=== PATIENT | female | born 1990 | race Caucasian/White ===

== ENCOUNTER 2018-07-17 16:18 | Emergency (ER) | payer SELFPAY ==
[2018-07-17 17:16] LABS: Absolute Monocytes 0.9 K/uL (0.1-1.3); Absolute Neutrophil 3.4 K/uL (1.8-8.0); Basophils % 0.8 % (0-1.3); Eosinophils % 0.7 % (0-4.4); Hematocrit 38.7 % (36.0-45.0); Lymphocytes % 19.1 % (15.3-44.8); MCH 29.5 pg (27.0-35.0); MCV 86.3 fL (80-100); MPV 9.6 fL (7.6-11.3); Monocytes % 16.9 % (3.3-12.3); RBC Red Blood Cell Count 4.48 M/uL (3.86-4.86)
[2018-07-17 17:25] LABS: Urine Blood 1+ (NEG); Urine Glucose NEGATIVE (NEG); Urine Protein 1+ (NEG)
[2018-07-17 17:30] LABS: ALT/SGPT 23 U/L (12-78); AST/SGOT 21 U/L (15-37); Albumin 2.9 g/dL (3.4-5.0); Alkaline Phosphatase 86 U/L (45-117); BUN Blood Urea Nitrogen 8 mg/dL (7-18); Bicarbonate 28 mmol/L (21-32); Bilirubin Direct < 0.1 mg/dL (0-0.2); Bilirubin Total 0.4 mg/dL (0.2-1.0); Glucose Level 96 mg/dL (74-106); Lipase 160 U/L (73-393); Potassium 3.5 mmol/L (3.5-5.1); Protein, Total 7.2 g/dL (6.4-8.2); Sodium Level 134 mmol/L (136-145)
[2018-07-17 17:32] LABS: Urine Bacteria 20-50 /HPF (<20)
[2018-07-17 17:33] LABS: Urine Culture Reflex Order REFLEXED
--- NOTE | 2018-07-17 18:10 | RAD REPORT ---
EXAM DESCRIPTION: CTAbdomen Pelvis W Contrast - 07/17/2018 5:53 pm CLINICAL HISTORY: Abdominal pain. FLANK PAIN COMPARISON: No comparisons TECHNIQUE: Biphasic CT imaging of the abdomen and pelvis was performed with 100 ml non-ionic IV cont rast. All CT scans are performed using dose optimization technique as appropriate and may include automated exposure control or mA/KV adjustment according to patient size. FINDINGS: The lung bases are clear. The liver demonstrates mild fatty infiltration. The spleen, pancreas, adrenal glands are within rodrick l limits. Edema is present in the anterior upper pole left kidney. The left uroepithelium demonstrate s mild enhancement. A stone is noted measuring 4 mm in the superior calyx left kidney. 7 mm stone is present mid-pole right kidney. No hydronephrosis. No bowel obstruction, free air, free fluid or abscess. The appendix is normal. No evidence of signi ficant lymphadenopathy. No suspicious bony findings. IMPRESSION: Left-sided pyelonephritis is suspected. No perinephric abscess. Bilateral nephrolithiasis without hydronephrosis.
[2018-07-17 18:22] LABS: Blood Morphology Comment NOT SEEN (NOT SEEN); Platelet Estimate ADEQ; Urine White Blood Cell Casts OK
[2018-07-17] MEDS ORDERED: CEFTRIAXONE/SWI 1gm 1 GM/10 ML SYR ONE (18:43)
[2018-07-17] MEDS ORDERED: NA CHLORIDE 0.9% 1,000 ML ONE (18:43)
[2018-07-17] MEDS ORDERED: KETOROLAC 30 MG/ML INJ ONE (18:43)
--- NOTE | 2018-07-17 19:02 | ER ---
Nurse's Notes [facility] Name: Pamela Martino Age: 27 yrs Sex: Female : 1990 Arrival Date: 07/17/2018 Time: 16:20 Bed 25 Private MD: None, None Diagnosis: Pyelonephritis Presentation: 07/17 16:36 Presenting complaint: Patient states: She started having abdominal pain and headache aj1 since Friday. Reports nausea, dizziness. Denies V/D. Reports that she believes she has been running fever at home, but has not checked it. Transition of care: patient was not received from another setting of care. Onset of symptoms was July 12, 2018. Risk Assessment: Do you want to hurt yourself or someone else? Patient reports no desire to harm self or others. Initial Sepsis Screen: Does the patient meet any 2 criteria? HR > 90 bpm. Does the patient have a suspected source of infection? Yes: Acute abdominal pain. Care prior to arrival: None. 16:36 Method Of Arrival: Ambulatory aj1 16:36 Acuity: OMID 3 aj1 Triage Assessment: 16:40 General: Appears in no apparent distress. uncomfortable, Behavior is calm, cooperative, aj1 appropriate for age. Pain: Complains of pain in left upper quadrant Pain radiates to left mid back Pain currently is 10 out of 10 on a pain scale. Neuro: Level of Consciousness is awake, alert, obeys commands. Cardiovascular: Patient's skin is warm and dry. Respiratory: Airway is patent Respiratory effort is even, unlabored, Respiratory pattern is regular, symmetrical. GI: Reports upper abdominal pain, nausea, Patient currently denies diarrhea, vomiting. 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 - Social history:: Smoking status: Patient uses tobacco products, smokes one-half pack cigarettes per day. - Ebola Screening: : Patient denies travel to an Ebola-affected area in the 21 days before illness onset. Screenin:54 Abuse screen: Denies threats or abuse. Denies injuries from another. Nutritional kr2 screening: No deficits noted. Tuberculosis screening: No symptoms or risk factors identified. Fall Risk None identified. Assessment: 16:45 General: Appears in no apparent distress. uncomfortable, well groomed, well developed, kr2 Behavior is calm, cooperative, appropriate for age. Pain: Complains of pain in left mid back and abdomen Pain currently is 6 out of 10 on a pain scale. Quality of pain is described as aching, tender, Is continuous, Alleviated by rest. Neuro: Level of Consciousness is awake, alert, confused, Oriented to person, place, time, situation. Neuro: Reports dizziness. Cardiovascular: Capillary refill < 3 seconds in bilateral fingers Patient's skin is warm and dry. Cardiovascular: Reports. Respiratory: Airway is patent Respiratory effort is even, unlabored, Respiratory pattern is regular, symmetrical. GI: Abdomen is flat, non-distended, Reports lower abdominal pain. : Urine is clear. EENT: Oral mucosa is moist. Derm: Skin is intact, is healthy with good turgor, Skin is pink, warm \T\ dry. Musculoskeletal: Circulation, motion, and sensation intact. 18:11 Reassessment: Patient appears in no apparent distress at this time. Patient and/or kr2 family updated on plan of care and expected duration. Pain level reassessed. Patient is alert, oriented x 3, equal unlabored respirations, skin warm/dry/pink. Vital Signs: 16:40 BP 117 / 71; Pulse 117; Resp 18; Temp 98.9(TE); Pulse Ox 98% on R/A; Weight 52.62 kg aj1 (R); Height 5 ft. 1 in. (154.94 cm) (R); Pain 10/10; 19:45 BP 110 / 70; Pulse 80; Resp 17; Pulse Ox 99% on R/A; kr2 16:40 Body Mass Index 21.92 (52.62 kg, 154.94 cm) aj1 ED Course: 16:20 Patient arrived in ED. sb2 16:20 None, None is Private Physician. sb2 16:40 Triage completed. aj1 16:40 Arm band placed on Patient placed in an exam room. aj1 16:43 Elvis Argueta NP is PHCP. pm1 16:44 Ezra Arellano MD is Attending Physician. pm1 16:44 Anastasia Stoddard, RN is Primary Nurse. kr2 16:55 Patient has correct armband on for positive identification. Placed in gown. Bed in low kr2 position. Side rails up X 1. Pulse ox on. NIBP on. Door closed. Warm blanket given. Head of bed elevated. 17:11 No provider procedures requiring assistance completed. Inserted saline lock: 20 gauge mg2 in left antecubital area, using aseptic technique. Blood collected. 17:53 CT Abd/Pelvis - W/Contrast: IV contrast only In Process Unspecified. EDMS 20:05 IV discontinued, intact, bleeding controlled, No redness/swelling at site. Pressure kr2 dressing applied. Administered Medications: 18:43 Drug: Rocephin 1 grams Route: IV; Rate: calculated rate; Site: left antecubital; kr2 20:05 Follow up: Response: No adverse reaction; IV Status: Completed infusion kr2 18:43 Drug: TORadol 30 mg Route: IVP; Site: left antecubital; kr2 19:30 Follow up: Response: No adverse reaction; Pain is decreased kr2 18:44 Drug: NS 0.9% 1000 ml Route: IV; Rate: 1 bolus; Site: left antecubital; kr2 20:06 Follow up: Response: No adverse reaction; IV Status: Completed infusion kr2 Outcome: 19:01 Discharge ordered by . pm1 20:04 Discharged to home ambulatory, with family. kr2 20:04 Condition: good 20:04 Discharge instructions given to patient, family, Instructed on discharge instructions, follow up and referral plans. medication usage, Demonstrated understanding of instructions, follow-up care, medications, Prescriptions given X 2. 20:07 Patient left the ED. kr2 Addendum: 07/20/2018 10:37 Addendum: Culture Results: Positive urine culture. No further action required. Bacteria i w sensitive to prescribed antibiotic. Signatures: Dispatcher [employer] EDMS Ethel Álvarez RN RN aj1 Belkis Schneider RN RN iw Elvis Argueta, ERIKA RUBBER PROCESS HAND pm1 Anastasia Stoddard, RN RN kr2 Opal Orr sb2 Andrew Jones RN RN mg2
--- NOTE | 2018-07-17 19:02 | EDPHYS ---
Physician Documentation [facility] Name: Pamela Martino Age: 27 yrs Sex: Female : 1990 Arrival Date: 07/17/2018 Time: 16:20 Bed 25 Private MD: None, None ED Physician Ezra Arellano HPI: 07/17 18:00 This 27 yrs old Female presents to ER via Ambulatory with complaints of Left pm1 flank pain. 18:00 The patient complains of pain in the left low back. The pain radiates to the left lower pm1 quadrant. Onset: The symptoms/episode began/occurred 4 day(s) ago. Modifying factors: The symptoms are alleviated by nothing. the symptoms are aggravated by nothing. Associated signs and symptoms: Pertinent positives: dizziness, headache, subjective fever, Pertinent negatives: diarrhea, nausea, vomiting. Severity of pain: in the emergency department the pain is actually worse. The patient has not experienced similar symptoms in the past. The patient has not recently seen a physician. 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 - Social history:: Smoking status: Patient uses tobacco products, smokes one-half pack cigarettes per day. - Ebola Screening: : Patient denies travel to an Ebola-affected area in the 21 days before illness onset. ROS: 18:00 Constitutional: Negative for fever, chills, and weight loss, Eyes: Negative for injury, pm1 pain, redness, and discharge, ENT: Negative for injury, pain, and discharge, Neck: Negative for injury, pain, and swelling, Cardiovascular: Negative for chest pain, palpitations, and edema, Respiratory: Negative for shortness of breath, cough, wheezing, and pleuritic chest pain, Abdomen/GI: Negative for abdominal pain, nausea, vomiting, diarrhea, and constipation. 18:00 : Negative for injury, bleeding, discharge, and swelling, MS/Extremity: Negative for injury and deformity, Skin: Negative for injury, rash, and discoloration, Neuro: Negative for headache, weakness, numbness, tingling, and seizure. 18:00 Back: Positive for flank pain, on the left. Exam: 18:00 Constitutional: This is a well developed, well nourished patient who is awake, alert, pm1 and in no acute distress. Head/Face: Normocephalic, atraumatic. Eyes: Pupils equal round and reactive to light, extra-ocular motions intact. Lids and lashes normal. Conjunctiva and sclera are non-icteric and not injected. Cornea within normal limits. Periorbital areas with no swelling, redness, or edema. ENT: Nares patent. No nasal discharge, no septal abnormalities noted. Tympanic membranes are normal and external auditory canals are clear. Oropharynx with no redness, swelling, or masses, exudates, or evidence of obstruction, uvula midline. Mucous membranes moist. Neck: Trachea midline, no thyromegaly or masses palpated, and no cervical lymphadenopathy. Supple, full range of motion without nuchal rigidity, or vertebral point tenderness. No Meningismus. Chest/axilla: Normal chest wall appearance and motion. Nontender with no deformity. No lesions are appreciated. Cardiovascular: Regular rate and rhythm with a normal S1 and S2. No gallops, murmurs, or rubs. Normal PMI, no JVD. No pulse deficits. Respiratory: Lungs have equal breath sounds bilaterally, clear to auscultation and percussion. No rales, rhonchi or wheezes noted. No increased work of breathing, no retractions or nasal flaring. Abdomen/GI: Soft, non-tender, with normal bowel sounds. No distension or tympany. No guarding or rebound. No evidence of tenderness throughout. 18:00 Skin: Warm, dry with normal turgor. Normal color with no rashes, no lesions, and no evidence of cellulitis. MS/ Extremity: Pulses equal, no cyanosis. Neurovascular intact. Full, normal range of motion. 18:00 Back: pain, that is mild, of the left low back, ROM is normal, painless. 18:00 Neuro: Orientation: is normal, Cranial nerves: CN II- XII are normal as tested, Motor: moves all fours, Sensation: is normal, no obvious gross deficits, Gait: is steady, at a normal pace, without difficulty. Vital Signs: 16:40 BP 117 / 71; Pulse 117; Resp 18; Temp 98.9(TE); Pulse Ox 98% on R/A; Weight 52.62 kg aj1 (R); Height 5 ft. 1 in. (154.94 cm) (R); Pain 10/10; 19:45 BP 110 / 70; Pulse 80; Resp 17; Pulse Ox 99% on R/A; kr2 16:40 Body Mass Index 21.92 (52.62 kg, 154.94 cm) aj1 MDM: 16:44 Patient medically screened. pm1 18:59 Data reviewed: vital signs. Data interpreted: Pulse oximetry: on room air is 98 %. pm1 Interpretation: normal. Counseling: I had a detailed discussion with the patient and/or guardian regarding: the historical points, exam findings, and any diagnostic results supporting the discharge/admit diagnosis, lab results, radiology results, the need for outpatient follow up, to return to the emergency department if symptoms worsen or persist or if there are any questions or concerns that arise at home. 07/17 17:01 Order name: Basic Metabolic Panel; Complete Time: 17:37 pm1 07/17 17:01 Order name: CBC with Diff; Complete Time: 18:34 pm1 07/17 17:01 Order name: Creatinine for Radiology; Complete Time: 17:37 pm1 07/17 17:01 Order name: Hepatic Function; Complete Time: 17:37 pm1 07/17 17:01 Order name: Lipase; Complete Time: 17:37 pm1 07/17 17:01 Order name: Urine Microscopic Only; Complete Time: 17:37 pm1 07/17 17:03 Order name: CT Abd/Pelvis - W/Contrast: IV contrast only; Complete Time: 18:34 pm1 07/17 17:07 Order name: Urine Dipstick--Ancillary (enter results); Complete Time: 17:25 eb 07/17 17:07 Order name: Urine --Ancillary (enter results); Complete Time: 17:25 eb 07/17 17:22 Order name: CBC Smear Scan; Complete Time: 18:34 EDSC 07/17 17:35 Order name: Urine Culture EDSC 07/17 17:01 Order name: IV Saline Lock; Complete Time: 17:11 pm1 07/17 17:01 Order name: Labs collected and sent; Complete Time: 17:11 pm1 07/17 17:01 Order name: Urine Dipstick-Ancillary (obtain specimen); Complete Time: 17:11 pm1 07/17 17:01 Order name: Urine Test (obtain specimen); Complete Time: 17:11 pm1 Administered Medications: 18:43 Drug: Rocephin 1 grams Route: IV; Rate: calculated rate; Site: left antecubital; kr2 20:05 Follow up: Response: No adverse reaction; IV Status: Completed infusion kr2 18:43 Drug: TORadol 30 mg Route: IVP; Site: left antecubital; kr2 19:30 Follow up: Response: No adverse reaction; Pain is decreased kr2 18:44 Drug: NS 0.9% 1000 ml Route: IV; Rate: 1 bolus; Site: left antecubital; kr2 20:06 Follow up: Response: No adverse reaction; IV Status: Completed infusion kr2 Disposition: 07/17/18 19:01 Discharged to Home. Impression: Pyelonephritis. - Condition is Stable. - Discharge Instructions: Pyelonephritis, Adult. - Prescriptions for Tramadol 50 mg Oral Tablet - take 1 tablet by ORAL route every 8 hours as needed; 20 tablet. Levaquin 750 mg Oral Tablet - take 1 tablet by ORAL route once daily for 7 days; 7 tablet. - Medication Reconciliation Form, Thank You Letter, Antibiotic Education, Prescription Opioid Use form. - Follow up: Emergency Department; When: As needed; Reason: Worsening of condition. Follow up: Private Physician; When: 2 - 3 days; Reason: Recheck today's complaints, Continuance of care, Re-evaluation by your physician. - Problem is new. - Symptoms have improved. Addendum: 07/20/2018 18:00 Co-signature as Attending Physician, Ezra Arellano MD. g s Signatures: Dispatcher [employer] EDSC Ethel Álvarez RN RN aj1 Elvis Argueta, PROGRAM AND RESEARCH COORDINATOR PROGRAM AND RESEARCH COORDINATOR pm1 Ezra Arellano MD MD gs Reaves, Karey, RN RN kr2 Corrections: (The following items were deleted from the chart) 07/17 20:07 19:01 07/17/2018 19:01 Discharged to Home. Impression: Pyelonephritis. Condition is kr2 Stable. Forms are Medication Reconciliation Form, Thank You Letter, Antibiotic Education, Prescription Opioid Use. Follow up: Emergency Department; When: As needed; Reason: Worsening of condition. Follow up: Private Physician; When: 2 - 3 days; Reason: Recheck today's complaints, Continuance of care, Re-evaluation by your physician. Problem is new. Symptoms have improved. pm1
== END 2018-07-17 20:07 | disposition home or self-care (01) ==
LOC: ER 16:18
DX: N12 Tubulo-interstitial nephritis, not specified as acute or chronic (principal); F17.210 Nicotine dependence, cigarettes, uncomplicated
CPT/HCPCS: 36415; 74177; 80048; 80076; 81003; 81015; 81025; 83690; 85025; 87077; 87086; 87088; 87186; 96365; 96375; 99284; J0696; J7030; Q9967